=== PATIENT | female | born 1950 | race Caucasian/White ===

== ENCOUNTER 2024-05-17 15:25 | Observation (INO) | payer OTHER ==
[~2024-05-17] VITALS: Ht 167.6 cm; Wt 99.8 kg
[2024-05-17 15:34] VITALS: BP 175/81; PULSE 114; RESP 19; TEMP 101.1; O2SAT 95
--- NOTE | 2024-05-17 15:34 | NUR ---
BIBA ALS TO ER 6
--- NOTE | 2024-05-17 15:46 | NUR ---
74 YO FEMALE BIB ACLS C/O WEAKNESS, DIZZY, FEVER X 3 DAYS, 1X SYNCOPE EPISODE TODAY. DENIES N/V/D; SKIN IS PINK/WARM/DRY; AAOX4 WITH EVEN AND STEADY GAIT; LUNGS CLEAR BL; HR EVEN AND REGULAR; PT DENIES ANY FEVER, CP, SOB, OR COUGH AT THIS TIME; PATIENT STATES PAIN OF 0/10 AT THIS TIME; VSS; PATIENT POSITIONED FOR COMFORT; HOB ELEVATED; BEDRAILS UP X2; BED DOWN. CALL LIGHT WITHIN REACH; ER MD MADE AWARE OF PT STATUS. PMH- HTN, HLD,COLITIS ALLERGY- CODEINE,GABAPENTIN
--- NOTE | 2024-05-17 16:25 | NUR ---
IMAGING AT BEDSIDE FOR CHEST X-RAYS
--- NOTE | 2024-05-17 16:31 | NUR ---
MD MUNOZ AT BEDSIDE FOR EVALUATION
[2024-05-17] MEDS: NACL 0.9% 1,000 ML IV ONE (16:42)
[2024-05-17] MEDS: NACL 0.9% 1,000 ML IV SCH ×2 (16:42→19:04)
[2024-05-17 17:05] LABS: BASOPHILS % (AUTO) 0.3 % (0.0-2.0); EOSINOPHILS % (AUTO) 0.6 % (0.0-4.0); HEMATOCRIT 35.7 % (36-48); HEMOGLOBIN 12.2 g/dL (12.0-16.0); LYMPHOCYTES # (AUTO) 0.6 K/uL (2.5-16.5); LYMPHOCYTES % (AUTO) 7.4 % (20.5-51.1); MEAN CORPUSCULAR HEMOGLOBIN 30 pg (27-31); MEAN CORPUSCULAR HGB CONC 34 g/dL (33-37); MEAN CORPUSCULAR VOLUME 88.5 fL (80-94); MONOCYTES # (AUTO) 0.7 K/uL (0.8-1.0); MONOCYTES % (AUTO) 7.9 % (1.7-9.3); NEUTROPHILS # (AUTO) 7.2 K/uL (1.8-7.7); NEUTROPHILS % (AUTO) 83.8 % (42.2-75.2); PLATELET COUNT (AUTO) 140 K/uL (140-450); RED BLOOD CELL COUNT(AUTO) 4.03 MIL/uL (4.20-5.40); RED CELL DISTRIBUTION WIDTH 13.6 % (11.6-13.7)
[2024-05-17 17:16] LABS: INR 0.99 (0.8-1.2); PARTIAL THROMBOPLASTIN TIME 22.8 secs (22-35.6); PROTHROMBIN TIME 10.4 secs (10.8-13.4)
[2024-05-17 17:17] LABS: ANION GAP 12.9 (8-16); CALCIUM 9.3 mg/dL (8.5-10.1); CARBON DIOXIDE 25.6 mmol/L (21-32); CHLORIDE 104 mmol/L (98-107); CREATININE 0.8 mg/dL (0.6-1.3); GLUCOSE 104 mg/dL (74-106); POTASSIUM 3.5 mmol/L (3.5-5.1); SODIUM SERUM 139 mmol/L (136-145); UREA NITROGEN, BLOOD 17 mg/dL (7-18)
[2024-05-17 17:25] LABS: WHITE BLOOD COUNT (AUTO) 8.6 K/uL (4.8-10.8)
[2024-05-17 17:27] LABS: LACTIC ACID 0.9 mmol/L (0.4-2.0)
[2024-05-17 17:34] LABS: ALANINE AMINOTRANSFERASE 20 U/L (12-78); ALBUMIN 3.5 g/dL (3.4-5.0); ALKALINE PHOSPHATASE 74 U/L (50-136); ASPARTATE AMINOTRANSFERASE 19 U/L (15-37); BILIRUBIN,DIRECT 0.2 mg/dL (0.0-0.3); TOTAL BILIRUBIN 0.7 mg/dL (0.0-1.0); TOTAL PROTEIN, SERUM 7.2 g/dL (6.4-8.2)
[2024-05-17 18:16] LABS: FLU A ANTIGEN negative (NEGATIVE); FLU B ANTIGEN NEGATIVE (NEGATIVE)
[2024-05-17] MEDS ORDERED: ACETAMINOPHEN EXTRA STRENGTH 500 MG TAB ONE (18:47)
[2024-05-17] MEDS: ACETAMINOPHEN EXTRA STRENGTH 500 MG TAB PO ONE (18:50)
[2024-05-17] MEDS ORDERED: MORPHINE SULFATE 2 MG/ML SYR IVP PRN (18:55)
[2024-05-17] MEDS ORDERED: ONDANSETRON 4 MG/2 ML VIAL IVP PRN (18:55)
--- NOTE | 2024-05-17 19:12 | NUR ---
LAB AT BEDSIDE FOR REPEAT LACTIC ACID
--- NOTE | 2024-05-17 19:20 | NUR ---
RECEIVED REPORT FROM POOJA GARCES. CONTINUE PLAN OF CARE AT THIS TIME.
[2024-05-17 19:30] VITALS: O2SAT 98
[2024-05-17] MEDS ORDERED: ATEN25TA2 PO (19:47)
[2024-05-17] MEDS ORDERED: LISI2.5T12 PO (19:47)
--- NOTE | 2024-05-17 22:05 | NUR ---
Patient will be admitted to care of DR. FLYNN. Admited to [facility]. Will go to room 116-A. Belongings list completed. Report to POOJA GONZALEZ.
[2024-05-17 23:10] VITALS: BP 138/81; PULSE 88; RESP 17; TEMP 98.9; O2SAT 98
--- NOTE | 2024-05-18 02:41 | NUR ---
OXYGEN ORDER TO KEEP 02 > 92% WAS INITIATED. PT ON ROOM AIR SPO2 IS 94%, PT STATES SHE HAS NO SHORTNESS OF BREATH.
[2024-05-18 04:00] VITALS: BP 154/76; PULSE 86; RESP 17; TEMP 99.2; O2SAT 94; O2SAT 96
--- NOTE | 2024-05-18 07:00 | NUR ---
SHIFT SUMMARY REPORT: RECEIVED PT FROM ED AT 2200 REPORT RECEIVED FROM NURSE JONY, PT IS SAFE AND STABLE, INFREQUENT NON-PRODUCTIVE COUGH. AFEBRILE THROUGHOUT THE SHIFT, ON BEDREST TOLERATING 2L 02 PER NC VERBALLY DENIES PAIN, HYDRATION INFUSING VIA PUMP ORDERED TO PATENT PERIPHERAL IV, SR W/BBB PER CONTINUOUS TELEMETRY MONITORING. NO DIZZINESS REPORTED. SAFETY ENSURED.
[2024-05-18 07:09] LABS: BASOPHILS % (AUTO) 0.2 % (0.0-2.0); EOSINOPHILS % (AUTO) 0.1 % (0.0-4.0); HEMATOCRIT 33.4 % (36-48); HEMOGLOBIN 11.4 g/dL (12.0-16.0); LYMPHOCYTES % (AUTO) 12.6 % (20.5-51.1); MEAN CORPUSCULAR HEMOGLOBIN 30 pg (27-31); MEAN CORPUSCULAR HGB CONC 34 g/dL (33-37); MEAN CORPUSCULAR VOLUME 88.7 fL (80-94); MONOCYTES # (AUTO) 0.7 K/uL (0.8-1.0); MONOCYTES % (AUTO) 8.9 % (1.7-9.3); NEUTROPHILS % (AUTO) 78.2 % (42.2-75.2); PLATELET COUNT (AUTO) 122 K/uL (140-450); RED BLOOD CELL COUNT(AUTO) 3.76 MIL/uL (4.20-5.40); RED CELL DISTRIBUTION WIDTH 13.6 % (11.6-13.7); WHITE BLOOD COUNT (AUTO) 7.7 K/uL (4.8-10.8)
[2024-05-18 07:26] LABS: ANION GAP 11.8 (8-16); CALCIUM 8.9 mg/dL (8.5-10.1); CARBON DIOXIDE 25.8 mmol/L (21-32); CHLORIDE 102 mmol/L (98-107); CREATININE 0.8 mg/dL (0.6-1.3); GLUCOSE 118 mg/dL (74-106); POTASSIUM 3.6 mmol/L (3.5-5.1); SODIUM SERUM 136 mmol/L (136-145); UREA NITROGEN, BLOOD 8 mg/dL (7-18)
--- NOTE | 2024-05-18 07:30 | NUR ---
BEDSIDE HANDOFF REPORT GIVEN TO PAUL.
[2024-05-18 08:00] VITALS: PULSE 84; RESP 16; O2SAT 99
[2024-05-18 12:00] VITALS: BP 127/72; PULSE 84; RESP 16; TEMP 100.6; O2SAT 99
[2024-05-18] MEDS ORDERED: remdesivir COMMUNICATION ORDER 1 EA MISC MC PRN (13:20)
[2024-05-18] MEDS ORDERED: remdesivir CLINICAL MONITORING 1 EA MISC MC PRN (13:35)
[2024-05-18 13:47] LABS: ALBUMIN 3.3 g/dL (3.4-5.0); TOTAL BILIRUBIN 0.7 mg/dL (0.0-1.0); TOTAL PROTEIN, SERUM 6.8 g/dL (6.4-8.2)
[2024-05-18 14:45] LABS: BILIRUBIN,DIRECT 0.2 mg/dL (0.0-0.3)
[2024-05-18 16:00] VITALS: BP 132/70; PULSE 78; PULSE 80; RESP 16; TEMP 101.5; O2SAT 94
--- NOTE | 2024-05-18 16:04 | NUR ---
PATIENT HAS BEEN SCREENED AND CATEGORIZED LOW NUTRITION RISK. PATIENT WILL BE SEEN WITHIN 7 DAYS OF ADMISSION. 05/24/[address]
[2024-05-18] MEDS: REMDESIVIR. 200 MG in NACL 0.9% 100 ML IV SCH (17:01)
--- NOTE | 2024-05-18 19:20 | NUR ---
RECEIVED REPORT FORM SHREE PATTON. PATIENT RESTING IN BED, AWAKE, A/OX4. RESPIRATION EVEN AND UNLABORED. IV OF NS INFUSING AT 100 ML/HR, LEFT AC G20. 02 SAT - 92% ON ROOM AIR. INSTRUCTED TO CALL NURSE BEFORE GETTING OUT OF BED AND IF SHE NEEDS ANYTHING. VERBALIZED UNDERSTANDING. DENIES PAIN 0/10.
[2024-05-18 20:00] VITALS: BP 112/50; PULSE 76; RESP 17; RESP 18; TEMP 98.2; O2SAT 92
--- NOTE | 2024-05-18 20:00 | NUR ---
VS STABLE, 02 SAT - 92% ON ROOM AIR. NO SOB NOTED.
[2024-05-18 20:01] VITALS: PULSE 75
--- NOTE | 2024-05-18 23:30 | NUR ---
DIAPER CHANGED. MADE COMFORTABLE IN BED WITH PILLOWS.
[2024-05-19] VITALS (10 sets, daily range): BP systolic 101–154; BP diastolic 59–94; PULSE 62–81; RESP 16–20; TEMP 96.9–98.5; O2SAT 93–98
--- NOTE | 2024-05-19 | NUR ---
AFEBRILE, 98.5F. 02 SAT - 93% ON ROOM AIR. DIAPER CHANGED.
[2024-05-19] MEDS: ACETAMINOPHEN 325 MG TAB PO PRN (02:28)
--- NOTE | 2024-05-19 02:28 | NUR ---
WITH HEADACHE, MEDICATED WITH TYLENOL PER MD ORDER.
--- NOTE | 2024-05-19 04:00 | NUR ---
VS STABLE. DENIES HEADACHE. SINUS RHYTHM ON TELE MONITORING.
--- NOTE | 2024-05-19 05:30 | NUR ---
GOWN AND DIAPER CHANGED, MADE COMFORTABLE IN BED WITH PILLOWS.
--- NOTE | 2024-05-19 06:47 | NUR ---
CONDITION REMAIN STABLE. WILL ENDORSE TO AM SHIFT NURSE FOR CONTINUITY OF CARE.
[2024-05-19 07:30] LABS: ALBUMIN 2.8 g/dL (3.4-5.0); BILIRUBIN,DIRECT 0.1 mg/dL (0.0-0.3); TOTAL BILIRUBIN 0.4 mg/dL (0.0-1.0); TOTAL PROTEIN, SERUM 6.4 g/dL (6.4-8.2)
--- NOTE | 2024-05-19 07:44 | NUR ---
PT RECEIVED FROM NIGHT NURSE,Jesus/NELLY,PT IS ON REGULAR DIET, SKIN IS INTACT,SAFETY IS ON PLACE,BED IN LOW POSITION,SIDE RAILS UP,PT IS UNDER OBSERVATION.
[2024-05-19] MEDS: ASPIRIN 81 MG TAB.CHEW PO SCH (08:54)
[2024-05-19] MEDS: ATORVASTATIN 20 MG TAB PO SCH (08:54)
[2024-05-19] MEDS: atenoloL 25 MG TAB PO SCH (08:54)
[2024-05-19] MEDS: lisinopriL 20 MG TAB PO SCH (08:55)
[2024-05-19] MEDS: MAG SULF 2000 MG/WATER PREMIX 50 ML IV SCH (11:33)
--- NOTE | 2024-05-19 12:00 | NUR ---
PT IS RESTING ON BED,NO DISTRESS NOTED,NO COMPLAINT FOR PAIN,SAFETY IS ON PLACE,PT IS UNDER OBSERVATION.
[2024-05-19] MEDS: REMDESIVIR. 100 MG in NACL 0.9% 100 ML IV SCH (14:53)
--- NOTE | 2024-05-19 15:50 | NUR ---
Unable to gather info from pt due to her medical condition. Therefore collat info gathered from her son Dago Lemos .
--- NOTE | 2024-05-19 16:00 | NUR ---
PT RESTING ON BED,NO COMPLAINT,SAFETY IS ON PLACE,PT IS UNDER OBSERVATION.
[2024-05-19] MEDS ORDERED: ATOR20TA PO (18:46)
[2024-05-19] MEDS ORDERED: ASPI-1822 PO (18:46)
--- NOTE | 2024-05-19 19:27 | NUR ---
PT IS ENDORSE TO NIGHT NURSE FOR CONTINUITY OF CARE.
--- NOTE | 2024-05-19 21:08 | NUR ---
RECEIVED A CALL FROM DAUGHTER IN LAW, RILEY THAT FAMILY REQUESTED PT TO STAY ONE MORE NIGHT IN HOSPITAL. PT LIVES ALONE IN HER APARTMENT AND SHE IS WITH UNSTEADY GAIT, NEEDS ASSISTANCE FOR ALL ADLS INCLUDING NEEDS ASSISTANCE GOING TO RESTROOM. RILEY AND LISA (SON OF PT) CAN NOT TAKE CARE AT HOME BECAUSE THEY HAVE LITTLE KIDS AND BABY. FAMILY WILL ARRANGE ONE OF THE DAUGHTER WHO WILL STAY WITH PATIENT BUT CAN NOT BE TONIGHT. TOMORROW ONE OF THE DAUGHTER WILL BORDER GUARD PT AFTER WORK AT 5PM AND STAY WITH PT IN HER APARTMENT. INFORMED DR. THOMAS GRANT MD AWARE.
[2024-05-20] VITALS: BP 140/70; PULSE 67; PULSE 68; RESP 18; TEMP 97; O2SAT 96
[2024-05-20 04:00] VITALS: BP 133/67; PULSE 52; PULSE 65; RESP 19; TEMP 97.4; O2SAT 93
[2024-05-20 07:14] LABS: ALBUMIN 2.8 g/dL (3.4-5.0); BILIRUBIN,DIRECT 0.1 mg/dL (0.0-0.3); TOTAL BILIRUBIN 0.4 mg/dL (0.0-1.0); TOTAL PROTEIN, SERUM 6.4 g/dL (6.4-8.2)
--- NOTE | 2024-05-20 07:15 | NUR ---
RECEIVED REPORT FROM BASHIR FOR CONTINUITY OF CARE. PT IS ASLEEP WITH VISIBLE RISE AND FALL OF THE CHEST. NO SIGN OF DISTRESS, CALL LIGHT WITHIN REACH.
[2024-05-20 08:00] VITALS: BP_SYST 109; BP_SYST 126; BP_DIAS 58; BP_DIAS 59; PULSE 96; RESP 18; RESP 19; TEMP 97.5; TEMP 98.5; O2SAT 96; O2SAT 98
--- NOTE | 2024-05-20 08:06 | NUR ---
CALLED LISA GUILLEN (SON) AND THEN RILEY PICKED UP. SHE STATED NO ONE WILL MEDICAL BILLING COORDINATOR THE PT UNTIL 5PM AND WILL NOT GIVE INFORMATION ABOUT [place] (DAUGHTER) WHO IS SUPPOSED TO PICK THE PT FROM THE HOSPITAL.
[2024-05-20 12:00] VITALS: BP 132/80; PULSE 92; RESP 18; TEMP 98.3; O2SAT 96
--- NOTE | 2024-05-20 12:20 | NUR ---
PT WAS DISCHARGED. IV AND ID BAND REMOVED. DISCHARGE PAPERS AND TEACHINGS GIVEN. DAUGHTER BALTAZAR PICKED THE PT UP. LEFT THE UNIT VIA WHEELCHAIR. TRANSFERRED TO THE CAR WITH MINIMAL ASSISTANCE.
== END 2024-05-20 12:20 | disposition home or self-care (01) ==
LOC: MED 15:25 → MTU 18:57
PROVIDERS: ADMIT Hospitalist; ATTEND Hospitalist
DX: A41.89 Other specified sepsis (principal); U07.1 COVID-19; I11.0 Hypertensive heart disease with heart failure; I50.32 Chronic diastolic (congestive) heart failure; R55 Syncope and collapse; M19.90 Unspecified osteoarthritis, unspecified site; I21.A1 Myocardial infarction type 2; Z87.19 Personal history of other diseases of the digestive system; Z79.899 Other long term (current) drug therapy
CPT/HCPCS: 36415; 71045; 80048; 80076; 83605; 83735; 83880; 84484; 85025; 85610; 85730; 87040; 87081; 87426; 87804; 93005; 94760; 96361; 96365; 96366; 96367; 99291; C8929; G0378; J3475